=== PATIENT | female | born 1945 | race African-American/Black ===

== ENCOUNTER 2017-04-10 14:13 | Emergency (ER) | payer MEDICARE ==
[~2017-04-10] VITALS: Ht 172.7 cm; Wt 83.9 kg
[~2017-04-10 14:13] MED LIST: BACITRACIN ZIN1 EACH TOPIC; BACTRIM-DS1 EA ORAL; CEPHALEXIN500 MG ORAL; COLACE100 MG ORAL; GABAPENTIN100 MG ORAL; INVANZ1 G1 IM; METFORMIN HCL850 M1 ORAL; NORCO 5-325 TA1 EACH ORAL; SYNTHROID100 MCG ORAL; VANCOMYCIN1 GM/2502 IVPB
[2017-04-10 14:53] VITALS: BP 137/75
[2017-04-10] MEDS ORDERED: TYLENOL EXTRA500 MG ORAL (15:46)
--- NOTE | 2017-04-10 15:59 | Diagnostic Imaging Report ---
Indication: PAIN Technique: 3 views of the lumbar spine Comparison: None Findings:There is a slight superior endplate and anterior wedge compression fracture deformity of the L3 vertebral body. The remaining vertebral body heights are preserved. The bony alignment is normal. There is mild degenerative narrowing of the disc at L2-3 and L4-5. The pedicles are intact. Sacral arches are preserved. Sacroiliac joint spaces are preserved. Surgical clips are seen in the lower abdomen and upper pelvis Impression:Acuity indeterminate L3 vertebral body compression fracture. Consider MRI for better characterization if clinically indicated Degenerative changes, as described
--- NOTE | 2017-04-10 16:13 | Diagnostic Imaging Report ---
Indication: PAIN Technique: 3 views of the right knee Comparison: None Findings:Slight patella baja deformity. No acute fractures. No dislocations. Suprapatellar effusion. Joint spaces are preserved. Impression:No acute process. Findings as noted
[2017-04-10 16:18] VITALS: BP 137/75
--- NOTE | 2017-04-10 22:35 | Emergency Room Report ---
History of Present Illness General Chief Complaint: Multiple Trauma/Fall Source: Patient Present Illness HPI The patient is a 71-year-old female presenting for any pain and lower back pain after slipping and falling today. She states that she slipped on water and her knees folded. She fell onto her right knee and then onto her back. Pain is a 9 /10 dull ache to these areas and does not radiate. Worse with touch and movement. She denies previous injury to these areas. She denies hitting head or loss of consciousness. She denies any other symptoms Allergies: Coded Allergies: ASPIRIN (Verified Allergy, Unknown, 12/26/15) CODEINE (Verified Allergy, Unknown, 12/26/15) Patient History Past Medical History: see triage record Pertinent Family History: none Reviewed Nursing Documentation: PMH: Agreed, PSxH: Agreed Nursing Documentation-PMH Past Medical History: No History, Except For Hx Cardiac Problems: No Hx Diabetes: Yes Hx Cancer: No Hx Gastrointestinal Problems: Yes Hx Neurological Problems: No Review of Systems All Other Systems: negative except mentioned in HPI Physical Exam Vital Signs Date Time Temp Pulse Resp B/P (MAP) Pulse Ox O2 Delivery O2 Flow Rate FiO2 04/10/17 14:26 98.1 85 14 137/75 96 Room Air Sp02 EP Interpretation: reviewed, normal General Appearance: no apparent distress, alert, GCS 15, non-toxic Head: normocephalic, atraumatic Eyes: bilateral eye normal inspection, bilateral eye PERRL ENT: hearing grossly normal, normal pharynx, no angioedema, normal voice Neck: full range of motion, supple/symm/no masses Musculoskeletal: back normal, gait/station normal, normal range of motion, tender - R anterior knee Neurologic: alert, oriented x3, responsive, motor strength/tone normal, sensory intact, speech normal Psychiatric: judgement/insight normal, memory normal, mood/affect normal, no suicidal/homicidal ideation Skin: normal color, no rash, warm/dry, well hydrated Medical Decision Making PA Attestation Dr. Zuniga is my supervising physician. Patient management was discussed with my supervising physician Diagnostic Impression: Primary Impression: Knee contusion Qualified Codes: S80.01XA - Contusion of right knee, initial encounter Additional Impression: Lumbar contusion Qualified Codes: S30.0XXA - Contusion of lower back and pelvis, initial encounter ER Course The patient is a 71-year-old female presenting for any pain and lower back pain after slipping and falling today Ddx considered include but not limited to lumbar strain, degenerative disease, contusion, among others PE: NAD R knee: Full AROM. Normal gait. No ecchymosis. No edema. TTP over anterior region only TTP over lumbar paraspinal muscles. No midline TTP. No step-offs X-ray shows no acute findings. She'll be discharged home with pain medication. ER precautions given Other X-Ray Diagnostic Results Other X-Ray Diagnostic Results #1: X-Ray ordered: L spine # of Views/Limited Vs Complete: 3 View, Limited Indication: Pain EP Interpretation: Yes PA Xray: Interpretation reviewed, by supervising MD, and agrees with findings. Interpretation: no dislocation, no soft tissue swelling, no fractures Impression: No acute disease Electronically Signed by: Chao Guidry PA-C Other X-Ray Diagnostic Results #2: X-Ray ordered: R knee # of Views/Limited Vs Complete: 3 View Indication: Pain EP Interpretation: Yes PA Xray: Interpretation reviewed, by supervising MD, and agrees with findings. Interpretation: no dislocation, no soft tissue swelling, no fractures Impression: No acute disease Electronically Signed by: Chao Guidry PA-C Last Vital Signs Date Time Temp Pulse Resp B/P (MAP) Pulse Ox O2 Delivery O2 Flow Rate FiO2 04/10/17 16:18 98.1 76 14 137/75 96 Room Air Status: improved Disposition: HOME, SELF-CARE Condition: Improved Scripts Acetaminophen* (TYLENOL EXTRA STRENGTH*) 500 Mg Tablet 500 MG ORAL Q8H Y for Prn Headache/Temp > 101, #30 TAB 0 Refills Prov: CHAO GUIDRY 04/10/17 Patient Instructions: Contusion Additional Instructions: I discussed my findings with the patient. All questions and concerns have been answered. Treatment and medication compliance have been addressed. I advised the patient that they need to follow up with PMD in 3-5 days. Return to ED if pain remains or worsens, numbness or tingling occurs, new rash is noticed, fever is noticed, or if needed for any reason. Patient verbalized understanding of discharge instructions. CHAO GUIDRY Apr 10, 2017 22:35
== END 2017-04-10 16:19 | disposition home or self-care (01) ==
LOC: EMR 15:00
DX: S80.01XA Contusion of right knee, initial encounter (principal); S30.0XXA Contusion of lower back and pelvis, initial encounter; W01.0XXA Fall on same level from slipping, tripping and stumbling without subsequent striking against object, initial encounter; Y92.513 Shop (commercial) as the place of occurrence of the external cause; E11.9 Type 2 diabetes mellitus without complications; Z88.6 Allergy status to analgesic agent
CPT/HCPCS: 72020; 99284